=== PATIENT | female | born 1970 | race African-American/Black ===

== ENCOUNTER 2024-07-09 21:16 | Inpatient (IN) ==
--- NOTE | 2024-07-09 23:10 | DR.SOBA ---
HPI Time Seen Time Seen by Provider: 07/09/24 23:10 Primary Care Physician Primary Care Physician: Baljinder Hodge Complaints Chief Complaint:: Patient is reporting shortness of breath, fever, blood pressure high. Patient reports that she is a diabetic. Patient reports that she was seen at the [facility] earlier today around 3pm and was told that she had the flu. Patient reports that she was given generic Tamiflu, she states that she got that filled and that she laid down and when she got up, she was not feeling any better. Patient reports chills and fever. Fever as high as 103. Self Treatment fo Chief Complaint: Tamiflu, Tylenol(last dose approx 2 hours [employer]) COVID-19 Coronavirus risk:travel/contact w/high risk person: No Has patient experienced Coronavirus symptoms: Yes Coronavirus symptoms experienced: Fever, Coughing and Shortness of Breath Reviewed Nurses Notes Reviewed: Yes Source History Provided: Patient Mode of Arrival Mode of Arrival: Ambulatory Timing Onset of Chief Complaint: 07/08/24 PMH PMH Past Medical History: Yes Past Medical History: Arthritis, Diabetes and Hypertension Past Surgical History: Yes Surgical History: Hysterectomy Past Surgical History Comment: Breast Reduction, Tummy Tuck Family History History of Family Medical Conditions: No Family Medical History: Diabetes Mellitus and Heart Failure Social History Does patient currently use any type of tobacco product: Yes Have you used tobacco products in the last 12 months: Yes Type of Tobacco Use: Cigarettes Does any household member use tobacco: Yes Alcohol Use: None Do you use any recreational Drugs:: No Lives With: Spouse Lives Where: Home Travel Risk Coronavirus risk:travel/contact w/high risk person: No Has patient experienced Coronavirus symptoms: Yes Coronavirus symptoms experienced: Fever, Coughing and Shortness of Breath Infectious screening In the last 2 months have you had wt loss of >10#?: NO Have you had fever, night sweats or hemotysis?: No Have you traveled outside the country in the last 6 months?: No Isolation: Respiratory PE Vital Signs Vitals: Vital Signs Temperature 99.7 F Pulse Rate 102 Respiratory Rate 24 Respiratory Rate 24 Respiratory Rate 18 Respiratory Rate 18 Respiratory Rate 24 Blood Pressure [Right Arm] 165/97 Blood Pressure [Right Arm] 214/114 Blood Pressure 184/100 O2 Sat by Pulse Oximetry 95 O2 Sat by Pulse Oximetry 100 ROR Labs Reviewed 07/09/24 23:25 07/09/24 23:25 Laboratory: WBC 11.0 X10^3/uL (3.6-10.0) H 07/09/24 23:25 RBC 4.87 X10^6/uL (3.5-5.4) 07/09/24 23:25 Hgb 13.5 g/dL (12.0-16.0) 07/09/24 23:25 Hct 40.5 % (36.0-47.0) 07/09/24 23: MCV 83.3 fL (80.0-100.0) 07/09/24 23:25 MCH 27.7 pg (27.0-34.0) 07/09/24 23: MCHC 33.3 g/dL (33.0-35.0) 07/09/24 23: RDW 15.8 % (11.6-16.5) 07/09/24 23: Plt Count 320 X10^3/uL (150.0-450.0) 07/09/24 23:25 MPV 7.3 fL (7.4-11.0) L 07/09/24 23:25 Neut % (Auto) 88.6 % (42.0-75.0) H 07/09/24 23: Lymph % (Auto) 2.6 % (21.0-51.0) L 07/09/24 23:25 [place] % (Auto) 8.0 % (0.0-13.0) 07/09/24 23:25 Eos % (Auto) 0.4 % (0.9-2.9) L 07/09/24 23:25 Baso % (Auto) 0.4 % (0.2-1.0) 07/09/24 23:25 Neut # (Auto) 9.7 x10^3/uL (2.2-4.8) H 07/09/24 23:25 Lymph # (Auto) 0.3 X10^3/uL (1.3-2.9) L 07/09/24 23:25 [place] # (Auto) 0.9 x10^3/uL (0.3-0.8) H 07/09/24 23:25 Eos # (Auto) 0.0 x10^3/uL (0.0-0.2) 07/09/24 23:25 Baso # (Auto) 0.0 X10^3/uL (0.0-0.1) 07/09/24 23:25 Absolute Nucleated RBC 0.1 /100WBC 07/09/24 23:25 Sample Site L rad 07/09/24 23:37 ABG pH 7.470 (7.35-7.45) H 07/09/24 23:37 ABG pCO2 33.0 mmHg (35.0-45.0) L 07/09/24 23:37 ABG pO2 56.0 mmHg (80.0-100.0) L 07/09/24 23:37 ABG HCO3 24.0 mmol/L (22-26) 07/09/24 23:37 ABG O2 Saturation 91.0 % (90-100) 07/09/24 23:37 ABG Base Excess 0.8 mmol/L (-2.0-2.0) 07/09/24 23:37 Nate Test Pos 07/09/24 23:37 A-a Gradient 52.0 mmHg 07/09/24 23:37 FiO2 21.0 07/09/24 23:37 Blood Gas Comments Ramesh well. forming acid dumper 07/09/24 23:37 Sodium 139 mmol/L (136-145) 07/09/24 23:25 Corrected Sodium 140 mmol/L (136-145) 07/09/24 23:25 Potassium 3.6 mmol/L (3.5-5.1) 07/09/24 23:25 Chloride 102 mmol/L (98-107) 07/09/24 23:25 Carbon Dioxide 26.6 mmol/L (21-32) 07/09/24 23:25 BUN 10 mg/dL (7-18) 07/09/24 23:25 Creatinine 1.21 mg/dL (0.55-1.02) H 07/09/24 23:25 Est GFR (MDRD) Af Amer 59 (>60) 07/09/24 23:25 Est GFR (MDRD) Non-Af 49 (>60) L 07/09/24 23:25 Glucose 124 mg/dL (65-99) H 07/09/24 23:25 Calcium 9.5 mg/dL (8.5-10.1) 07/09/24 23:25 Corrected Calcium TNP 07/09/24 23:25 Total Bilirubin 0.30 mg/dL (0.2-1.0) 07/09/24 23:25 AST 68 Units/L (15-37) H 07/09/24 23:25 ALT 39 Units/L (12-78) 07/09/24 23:25 Alkaline Phosphatase 129 Units/L (46-116) H 07/09/24 23:25 B-Natriuretic Peptide 62.3 pg/mL (0-79) 07/09/24 23:25 Total Protein 7.7 g/dL (6.4-8.2) 07/09/24 23:25 Albumin 3.8 g/dL (3.4-5.0) 07/09/24 23:25 Globulin 3.9 g/dL (2.5-4.5) 07/09/24 23:25 Albumin/Globulin Ratio 1.0 Ratio (1.1-2.1) L 07/09/24 23:25 Opioid Opioid Risk Tool Age (Conrad box if 16-45): No History of Preadolescent Sexual Abuse: No Total: 0 Total Score Risk Category: Low Risk Copyright: Scott DE LEON predicting aberrant behaviors Discharge Plan Discharge Plan Patient Disposition: ADMITTED INPATIENT Condition: Stable Orders to Discharge Patient Discharge Orders: Transfer (Routine); Ordered 07/10/24 Ordered By: TACHO CASTELLON
[2024-07-09] MEDS: TORADOL 60 MG VIAL IM ONE (23:16)
[2024-07-09 23:40] LABS: BASOPHILS % (AUTO) 0.4 % (0.2-1.0); EOSINOPHILS % (AUTO) 0.4 % (0.9-2.9); HEMATOCRIT 40.5 % (36.0-47.0); HEMOGLOBIN 13.5 g/dL (12.0-16.0); LYMPHOCYTES # (AUTO) 0.3 X10^3/uL (1.3-2.9); LYMPHOCYTES % (AUTO) 2.6 % (21.0-51.0); MEAN CORPUSCULAR HEMOGLOBIN 27.7 pg (27.0-34.0); MEAN CORPUSCULAR HGB CONC 33.3 g/dL (33.0-35.0); MEAN CORPUSCULAR VOLUME 83.3 fL (80.0-100.0); MEAN PLATELET VOLUME 7.3 fL (7.4-11.0); MONOCYTES # (AUTO) 0.9 x10^3/uL (0.3-0.8); NEUTROPHILS # (AUTO) 9.7 x10^3/uL (2.2-4.8); NEUTROPHILS % (AUTO) 88.6 % (42.0-75.0); PLATELET COUNT 320 X10^3/uL (150.0-450.0); RED BLOOD COUNT 4.87 X10^6/uL (3.5-5.4); RED CELL DISTRIBUTION WIDTH 15.8 % (11.6-16.5)
[2024-07-09 23:41] LABS: ABG ALLEN TEST POS; ABG BASE EXCESS 0.8 mmol/L (-2.0-2.0)
[2024-07-10 00:11] LABS: ALANINE AMINOTRANSFERASE 39 Units/L (12-78); ALBUMIN 3.8 g/dL (3.4-5.0); ALKALINE PHOSPHATASE 129 Units/L (46-116); ASPARTATE AMINO TRANSFERASE 68 Units/L (15-37); BLOOD UREA NITROGEN 10 mg/dL (7-18); CALCIUM 9.5 mg/dL (8.5-10.1); CARBON DIOXIDE 26.6 mmol/L (21-32); CHLORIDE 102 mmol/L (98-107); COR NA(FOR HYPERGLY) 140 mmol/L (136-145); CREATININE 1.21 mg/dL (0.55-1.02); GLUCOSE 124 mg/dL (65-99); POTASSIUM 3.6 mmol/L (3.5-5.1); SODIUM 139 mmol/L (136-145); TOTAL PROTEIN 7.7 g/dL (6.4-8.2); eGFR NON BLACK RACES 49 (>60)
[2024-07-10] MEDS: CATAPRES TAB 0.2 MG PO ONE (00:31)
[2024-07-10] MEDS: TYLENOL 500 MG TAB EXTRA STRENGTH PO ONE ×2 (00:32→05:21)
[2024-07-10] MEDS: ZOSYN VIAL 3.375 GRAMS 3.375 G in NS 100 ML IV 100 ML IV ONE (02:26)
[2024-07-10] MEDS: SOLU-Medrol 125 MG VIAL IVP ONE (02:26)
[2024-07-10] MEDS ORDERED: NS 250 ML IV 25 ML IV PRN (03:38)
[2024-07-10] MEDS ORDERED: ZOSYN VIAL 3.375 GRAMS 3.375 G in NS 100 ML IV 100 ML IV SCH (03:38)
[2024-07-10] MEDS: NS 250 ML IV 25 ML IV PRN (03:56)
[2024-07-10] MEDS: ROBITUSSIN DM PO PRN (04:23)
[2024-07-10] MEDS ORDERED: DUONEB 0.5 MG/3 MG (3 mL) NEB ONE (04:31)
[2024-07-10] MEDS: DUONEB 0.5 MG/3 MG (3 mL) NEB SCH (04:35)
[2024-07-10] MEDS: TUSSIONEX PENNKINETIC SUSP PO PRN (04:38)
[2024-07-10] MEDS: CATAPRES TAB 0.1 MG PO ONE (04:38)
[2024-07-10 05:04] LABS: BILIRUBIN,URINE NEGATIVE (NEGATIVE); BLOOD/HEMOGLOBIN,URINE 3+ (NEGATIVE); GLUCOSE, URINE NEGATIVE (NEGATIVE); KETONES,URINE NEGATIVE (NEGATIVE); LEUKOCYTE ESTERASE ,URINE NEGATIVE (NEGATIVE); NITRITES,URINE NEGATIVE (NEGATIVE); PROTEIN,URINE 1+ (NEGATIVE); UROBILINOGEN,URINE NORMAL (NORMAL)
[2024-07-10 05:10] VITALS: BMI 40.4
[2024-07-10 05:12] LABS: APPEARANCE,URINE CLEAR (CLEAR); COLOR,URINE PALE YELLOW (YELLOW)
[2024-07-10 05:13] LABS: BACTERIA,URINE NEGATIVE /HPF (NEGATIVE); RBC,URINE 0-2 /HPF (0-3); SQUAMOUS EPITHELIAL CELL,UR RARE /HPF (NEGATIVE)
--- NOTE | 2024-07-10 05:19 | EKG ---
Test Reason : Hypertension protocol Blood Pressure : */* mmHG Vent. Rate : 102 BPM Atrial Rate : 102 BPM P-R Int : 164 ms QRS Dur : 74 ms QT Int : 352 ms P-R-T Axes : 43 -1 18 degrees QTc Int : 458 ms Sinus tachycardia Nonspecific T wave abnormality Abnormal ECG No previous ECGs available Confirmed by Larry Post MD ([id number]) on 07/10/2024 7:30:56 AM Referred By: Confirmed By: Larry Post MD
[2024-07-10] MEDS: CATAPRES TAB 0.2 MG ONE (05:21)
[2024-07-10 05:36] LABS: BASOPHILS % (AUTO) 0 % (0.2-1.0); EOSINOPHILS # (AUTO) 0.2 x10^3/uL (0.0-0.2); EOSINOPHILS % (AUTO) 1.7 % (0.9-2.9); HEMATOCRIT 39.7 % (36.0-47.0); HEMOGLOBIN 13.1 g/dL (12.0-16.0); LYMPHOCYTES # (AUTO) 0.2 X10^3/uL (1.3-2.9); LYMPHOCYTES % (AUTO) 2.5 % (21.0-51.0); MEAN CORPUSCULAR HEMOGLOBIN 27.4 pg (27.0-34.0); MEAN CORPUSCULAR HGB CONC 32.9 g/dL (33.0-35.0); MEAN CORPUSCULAR VOLUME 83.2 fL (80.0-100.0); MEAN PLATELET VOLUME 7.9 fL (7.4-11.0); MONOCYTES # (AUTO) 1.4 x10^3/uL (0.3-0.8); MONOCYTES % (AUTO) 15.5 % (0.0-13.0); NEUTROPHILS # (AUTO) 7.4 x10^3/uL (2.2-4.8); NEUTROPHILS % (AUTO) 80.3 % (42.0-75.0); PLATELET COUNT 300 X10^3/uL (150.0-450.0); RED BLOOD COUNT 4.77 X10^6/uL (3.5-5.4); RED CELL DISTRIBUTION WIDTH 15.5 % (11.6-16.5)
[2024-07-10 05:49] LABS: ALANINE AMINOTRANSFERASE 37 Units/L (12-78); ALBUMIN 3.5 g/dL (3.4-5.0); ALKALINE PHOSPHATASE 116 Units/L (46-116); ASPARTATE AMINO TRANSFERASE 95 Units/L (15-37); BLOOD UREA NITROGEN 11 mg/dL (7-18); CALCIUM 9.2 mg/dL (8.5-10.1); CARBON DIOXIDE 24.2 mmol/L (21-32); CHLORIDE 103 mmol/L (98-107); COR NA(FOR HYPERGLY) 138 mmol/L (136-145); CREATININE 1.08 mg/dL (0.55-1.02); GLUCOSE 127 mg/dL (65-99); POTASSIUM 3.8 mmol/L (3.5-5.1); SODIUM 137 mmol/L (136-145); TOTAL PROTEIN 7.2 g/dL (6.4-8.2); eGFR NON BLACK RACES 56 (>60)
[2024-07-10 05:55] LABS: WHITE BLOOD COUNT 9.8 X10^3/uL (3.6-10.0)
[2024-07-10 05:56] LABS: PLATELET MORPHOLOGY COMMENT NORMAL (NORMAL)
--- NOTE | 2024-07-10 06:58 | RAD ---
EXAM:Portable chestHISTORY:Fever, cough, shortness of breathCOMPARISON:11/03/2021FINDINGS:Hear t size is normal. Meera are normal. Lung greer are clear. No pleural effusions are identified. Bony thorax is unremarkableIMPRESSION:No significant abnormality identifiedTHIS IS AN ELECTRONICALLY VERIFIED FINAL [id number]/10/2024 6:54 AM - Electronically signed by Emmanuel Keane MD
[2024-07-10] MEDS ORDERED: CONSULT PHARMACY - POTASSIUM & MAGNESIUM XX SCH (07:00)
[2024-07-10] MEDS ORDERED: PULMICORT NEB TX 0.5 MG NEB ONE (07:23)
[2024-07-10] MEDS: ZOSYN VIAL 3.375 GRAMS 3.375 G in NS 100 ML IV 100 ML IV SCH (08:13)
[2024-07-10] MEDS: TAMIFLU PO SCH (08:14)
[2024-07-10] MEDS: K-DUR TAB 20 MEQ PO SCH (08:14)
[2024-07-10] MEDS: PULMICORT NEB TX 0.5 MG NEB SCH (08:35)
[2024-07-10] MEDS: APRESOLINE INJ 20 MG VIAL IVP ONE (08:42)
[2024-07-10] MEDS: NEURONTIN CAP 400 MG PO SCH (09:20)
[2024-07-10] MEDS: PriLOSEC PO SCH (09:20)
[2024-07-10] MEDS: TORADOL 30 MG VIAL IVP PRN (09:33)
--- NOTE | 2024-07-10 09:44 | DR.H&P ---
H&P History & Physical for Day of: H&P Date: 07/10/24 Chief Complaint Chief Complaint: sob, weakness History of Present Illness History of Present Illness: Ms Lepe is a 54y/o female with a PMH of HTN, DM, GERD and anxiety presented with dyspnea, weakness, fever and chills. She has had worsening symptoms for the past 2-3 days. She was seen in [facility] and tested positive for Flu. She was discharged on Tamiflu but continued to feel worse so came here. ER work up here showed ABG concerning for hypoxia. UA, COVID/RSV/Flu and CXR were all negative. She was started on Tamiflu and Zosyn. She is admitted for further management. She is currently on 2L NC. She reports generalized weakness and pain. Her BP is elevated this morning, 171/111. She was given IV hydralazine. She takes norvasc and lisinopril at home. Labs/imaging reviewed: -WBC 9.8 Hgb 13.1 BUN/Cr 11/.08 -ABG 7.47// -CXR: no acute process Plan: admit with isolation precautions. Wean O2 as tolerated. Will add toradol for pain control. Hydralazine prn. Resume home medications, confirm with pharmacy. Continue duonebs and pulmicort prn. Replace electrolytes prn. Tylenol prn. Add SSI. Monitor BP. Monitor AM labs/imaging. Past Medical History Past Medical History: Arthritis, Diabetes and Hypertension Past Surgical History Surgical History: Hysterectomy Family History Family Medical History: Diabetes Mellitus, Coronary Artery Disease and Hypertension Social History Does patient currently use any type of tobacco product: No Have you used tobacco products in the last 12 months: Yes Type of Tobacco Use: Cigarettes How many years tobacco product used: 3 Does any household member use tobacco: No Alcohol Use: None Drug Use: None Medications Home Medications: Home Medications Medication Instructions Recorded Confirmed Type amlodipine 10 mg tablet 10 mg PO QHS 11/03/21 07/09/24 History fluticasone propionate 50 1 spray intranasal DAILY 11/03/21 07/09/24 History mcg/actuation nasal spray,suspension loratadine 10 mg tablet 10 mg PO DAILY 11/03/21 07/09/24 History metformin 500 mg tablet,extended 1,000 mg PO QHS 11/03/21 07/09/24 History release 24 hr buspirone 10 mg tablet 10 mg PO BID PRN 07/09/24 07/09/24 History gabapentin 800 mg tablet 800 mg PO BID 07/09/24 07/09/24 History omeprazole 40 mg capsule,delayed 40 mg PO QAM 07/09/24 07/09/24 History release pantoprazole 40 mg tablet,delayed 40 mg PO QDAY 07/09/24 07/09/24 History release Allergies Allergies Allergy/AdvReac Type Severity Reaction Status Date / Time No Known Drug Allergies Allergy Verified 03/13/19 10:06 Labs 07/10/24 04:08 07/10/24 04:08 Labs: Laboratory WBC 9.8 X10^3/uL (3.6-10.0) 07/10/24 04:08 RBC 4.77 X10^6/uL (3.5-5.4) 07/10/24 04:08 Hgb 13.1 g/dL (12.0-16.0) 07/10/24 04:08 Hct 39.7 % (36.0-47.0) 07/10/24 04:08 MCV 83.2 fL (80.0-100.0) 07/10/24 04:08 MCH 27.4 pg (27.0-34.0) 07/10/24 04:08 MCHC 32.9 g/dL (33.0-35.0) L 07/10/24 04:08 RDW 15.5 % (11.6-16.5) 07/10/24 04:08 Plt Count 300 X10^3/uL (150.0-450.0) 07/10/24 04:08 Plt Count Comment Adequate (ADEQUATE) 07/10/24 04:08 MPV 7.9 fL (7.4-11.0) 07/10/24 04:08 Neut % (Auto) 80.3 % (42.0-75.0) H 07/10/24 04:08 Lymph % (Auto) 2.5 % (21.0-51.0) L 07/10/24 04:08 [place] % (Auto) 15.5 % (0.0-13.0) H 07/10/24 04:08 Eos % (Auto) 1.7 % (0.9-2.9) 07/10/24 04:08 Baso % (Auto) 0 % (0.2-1.0) L 07/10/24 04:08 Neut # (Auto) 7.4 x10^3/uL (2.2-4.8) H 07/10/24 04:08 Lymph # (Auto) 0.2 X10^3/uL (1.3-2.9) L 07/10/24 04:08 [place] # (Auto) 1.4 x10^3/uL (0.3-0.8) H 07/10/24 04:08 Eos # (Auto) 0.2 x10^3/uL (0.0-0.2) 07/10/24 04:08 Baso # (Auto) 0.0 X10^3/uL (0.0-0.1) 07/10/24 04:08 Absolute Nucleated RBC 0.0 /100WBC 07/10/24 04:08 Plt Morphology Comment Normal (NORMAL) 07/10/24 04:08 RBC Morphology Normal (NORMAL) 07/10/24 04:08 Sample Site L rad 07/09/24 23:37 ABG pH 7.470 (7.35-7.45) H 07/09/24 23:37 ABG pCO2 33.0 mmHg (35.0-45.0) L 07/09/24 23:37 ABG pO2 56.0 mmHg (80.0-100.0) L 07/09/24 23:37 ABG HCO3 24.0 mmol/L (22-26) 07/09/24 23:37 ABG O2 Saturation 91.0 % (90-100) 07/09/24 23:37 ABG Base Excess 0.8 mmol/L (-2.0-2.0) 07/09/24 23:37 Nate Test Pos 07/09/24 23:37 A-a Gradient 52.0 mmHg 07/09/24 23:37 FiO2 21.0 07/09/24 23:37 Blood Gas Comments Ramesh well. operation specialist 07/09/24 23:37 Sodium 137 mmol/L (136-145) 07/10/24 04:08 Corrected Sodium 138 mmol/L (136-145) 07/10/24 04:08 Potassium 3.8 mmol/L (3.5-5.1) 07/10/24 04:08 Chloride 103 mmol/L (98-107) 07/10/24 04:08 Carbon Dioxide 24.2 mmol/L (21-32) 07/10/24 04:08 BUN 11 mg/dL (7-18) 07/10/24 04:08 Creatinine 1.08 mg/dL (0.55-1.02) H 07/10/24 04:08 Est GFR (MDRD) Af Amer > 60 (>60) 07/10/24 04:08 Est GFR (MDRD) Non-Af 56 (>60) L 07/10/24 04:08 Glucose 127 mg/dL (65-99) H 07/10/24 04:08 POC Glucose (mg/dL) 169 mg/dL (65-99) H 07/10/24 05:15 Calcium 9.2 mg/dL (8.5-10.1) 07/10/24 04:08 Corrected Calcium TNP 07/10/24 04:08 Magnesium 2.0 mg/dL (2.0-2.9) 07/10/24 04:08 Total Bilirubin 0.30 mg/dL (0.2-1.0) 07/10/24 04:08 AST 95 Units/L (15-37) H 07/10/24 04:08 ALT 37 Units/L (12-78) 07/10/24 04:08 Alkaline Phosphatase 116 Units/L (46-116) 07/10/24 04:08 B-Natriuretic Peptide 62.3 pg/mL (0-79) 07/09/24 23:25 Total Protein 7.2 g/dL (6.4-8.2) 07/10/24 04:08 Albumin 3.5 g/dL (3.4-5.0) 07/10/24 04:08 Globulin 3.7 g/dL (2.5-4.5) 07/10/24 04:08 Albumin/Globulin Ratio 0.9 Ratio (1.1-2.1) L 07/10/24 04:08 Specimen Type Clean catch urine 07/10/24 04:45 Urine Color Pale yellow (YELLOW) 07/10/24 04:45 Urine Appearance Clear (CLEAR) 07/10/24 04:45 Urine pH 5.0 (5.0 - 8.0) 07/10/24 04:45 Ur Specific [place] 1.015 (1.000-1.030) 07/10/24 04:45 Urine Protein 1+ (NEGATIVE) 07/10/24 04:45 Urine Glucose (UA) Negative (NEGATIVE) 07/10/24 04:45 Urine Ketones Negative (NEGATIVE) 07/10/24 04:45 Urine Blood 3+ (NEGATIVE) 07/10/24 04:45 Urine Nitrite Negative (NEGATIVE) 07/10/24 04:45 Urine Bilirubin Negative (NEGATIVE) 07/10/24 04:45 Urine Urobilinogen Normal (NORMAL) 07/10/24 04:45 Ur Leukocyte Esterase Negative (NEGATIVE) 07/10/24 04:45 Urine RBC 0-2 /HPF (0-3) 07/10/24 04:45 Urine WBC None seen /HPF (0-5) 07/10/24 04:45 Ur Squamous Epith Cells Rare /HPF (NEGATIVE) 07/10/24 04:45 Urine Bacteria Negative /HPF (NEGATIVE) 07/10/24 04:45 Ur Culture Indicated? No/not indicated 07/10/24 04:45 Review of Systems Constitutional: Fever, Chills, Weakness and Malaise Eyes: No Symptoms Reported ENT: No Symptoms Reported Respiratory: Cough, Shortness of Breath and SOB with Excertion Cardiovascular: No Symptoms Reported Gastrointestinal: No Symptoms Reported Genitourinary: No Symptoms Reported Musculoskeletal: Other (generalized pain ) Skin: No Symptoms Reported Neurological: No Symptoms Reported Physical Exam Vital Signs: Vital Signs Temperature 100.5 F Temperature 99.0 F Temperature 99.0 F Pulse Rate [Left] 91 Pulse Rate 94 Pulse Rate 95 Pulse Rate 86 Pulse Rate 89 Pulse Rate 96 Pulse Rate 96 Pulse Rate 96 Pulse Rate 93 Pulse Rate 92 Pulse Rate 90 Pulse Rate 87 Pulse Rate 88 Pulse Rate 86 Pulse Rate 85 Pulse Rate 85 Pulse Rate 80 Pulse Rate 87 Pulse Rate 86 Pulse Rate 87 Pulse Rate 88 Pulse Rate 86 Pulse Rate 97 Pulse Rate 99 Pulse Rate 90 Pulse Rate 91 Pulse Rate 85 Pulse Rate 83 Pulse Rate 84 Pulse Rate 83 Pulse Rate 83 Pulse Rate 89 Pulse Rate 86 Pulse Rate 88 Pulse Rate 88 Pulse Rate 91 Pulse Rate 96 Pulse Rate 96 Pulse Rate 99 Pulse Rate 99 Pulse Rate 95 Pulse Rate 95 Pulse Rate 92 Pulse Rate 88 Pulse Rate 91 Pulse Rate 91 Pulse Rate 87 Pulse Rate 91 Respiratory Rate 30 Respiratory Rate 36 Respiratory Rate 55 Respiratory Rate 43 Respiratory Rate 30 Respiratory Rate 34 Respiratory Rate 32 Respiratory Rate 33 Respiratory Rate 30 Respiratory Rate 26 Respiratory Rate 24 Respiratory Rate 26 Respiratory Rate 25 Respiratory Rate 31 Respiratory Rate 32 Respiratory Rate 34 Respiratory Rate 31 Respiratory Rate 31 Respiratory Rate 33 Respiratory Rate 26 Respiratory Rate 28 Respiratory Rate 30 Respiratory Rate 53 Respiratory Rate 28 Respiratory Rate 8 Respiratory Rate 29 Respiratory Rate 30 Respiratory Rate 26 Respiratory Rate 27 Respiratory Rate 30 Respiratory Rate 23 Respiratory Rate 28 Respiratory Rate 32 Respiratory Rate 31 Respiratory Rate 34 Respiratory Rate 28 Respiratory Rate 30 Respiratory Rate 37 Respiratory Rate 30 Respiratory Rate 27 Respiratory Rate 24 Respiratory Rate 26 Respiratory Rate 28 Respiratory Rate 30 Respiratory Rate 28 Respiratory Rate 32 Respiratory Rate 26 Blood Pressure [Left Arm] 181/114 Blood Pressure 179/103 Blood Pressure 173/114 Blood Pressure 171/96 Blood Pressure 166/114 Blood Pressure 172/115 Blood Pressure 183/113 Blood Pressure 181/111 Blood Pressure 182/112 Blood Pressure 181/107 Blood Pressure 171/111 Blood Pressure 172/108 Blood Pressure 166/93 Blood Pressure 164/89 Blood Pressure 183/102 Blood Pressure 182/105 Blood Pressure 158/91 Blood Pressure 158/91 Blood Pressure 151/90 Blood Pressure 151/90 Blood Pressure 156/94 Blood Pressure 153/96 Blood Pressure 143/91 Blood Pressure 165/92 Blood Pressure 165/92 Blood Pressure 153/101 Blood Pressure 153/101 Blood Pressure 161/106 Blood Pressure 161/106 Blood Pressure 171/126 Blood Pressure 171/116 Blood Pressure 181/114 Blood Pressure 181/114 Blood Pressure 169/115 Blood Pressure 180/107 O2 Sat by Pulse Oximetry 94 O2 Sat by Pulse Oximetry 97 O2 Sat by Pulse Oximetry 97 O2 Sat by Pulse Oximetry 96 O2 Sat by Pulse Oximetry 96 O2 Sat by Pulse Oximetry 100 O2 Sat by Pulse Oximetry 100 O2 Sat by Pulse Oximetry 99 O2 Sat by Pulse Oximetry 99 O2 Sat by Pulse Oximetry 100 O2 Sat by Pulse Oximetry 98 O2 Sat by Pulse Oximetry 95 O2 Sat by Pulse Oximetry 93 O2 Sat by Pulse Oximetry 95 O2 Sat by Pulse Oximetry 94 O2 Sat by Pulse Oximetry 96 O2 Sat by Pulse Oximetry 96 O2 Sat by Pulse Oximetry 96 O2 Sat by Pulse Oximetry 94 O2 Sat by Pulse Oximetry 93 O2 Sat by Pulse Oximetry 89 O2 Sat by Pulse Oximetry 91 O2 Sat by Pulse Oximetry 94 O2 Sat by Pulse Oximetry 92 O2 Sat by Pulse Oximetry 93 O2 Sat by Pulse Oximetry 93 O2 Sat by Pulse Oximetry 92 O2 Sat by Pulse Oximetry 92 O2 Sat by Pulse Oximetry 92 O2 Sat by Pulse Oximetry 92 O2 Sat by Pulse Oximetry 94 O2 Sat by Pulse Oximetry 85 O2 Sat by Pulse Oximetry 85 O2 Sat by Pulse Oximetry 92 O2 Sat by Pulse Oximetry 87 O2 Sat by Pulse Oximetry 95 O2 Sat by Pulse Oximetry 90 O2 Sat by Pulse Oximetry 93 O2 Sat by Pulse Oximetry 93 O2 Sat by Pulse Oximetry 100 O2 Sat by Pulse Oximetry 96 O2 Sat by Pulse Oximetry 100 O2 Sat by Pulse Oximetry 95 O2 Sat by Pulse Oximetry 92 O2 Sat by Pulse Oximetry 95 O2 Sat by Pulse Oximetry 95 O2 Sat by Pulse Oximetry 90 O2 Sat by Pulse Oximetry 94 Oriented: Normal Eyes: Normal Ear: Normal Nose: Normal Throat: Normal Respiratory: Clear Throughout Cardiovascular: Normal Auscultation: Bowel Sounds: Normal Palpation: Normal Tenderness: Normal Skin: Normal Musculoskeletal: Normal Psychiatric: Normal Affect: Normal Speech Pattern: Clear and Appropriate Assessment/Plan (1) Influenza: Status: Acute (2) Acute respiratory failure: Qualifiers: Respiratory failure complication: hypoxia Qualified Code(s): J96.01 - Acute respiratory failure with hypoxia Status: Acute (3) Generalized weakness: Status: Acute (4) HTN (hypertension): Qualifiers: Hypertension type: primary hypertension Qualified Code(s): I10 - Essential (primary) hypertension Status: Chronic Review H&P Reviewed: Yes Patient was examined?: Yes
[2024-07-10] MEDS: BUSPAR PO PRN (10:46)
[2024-07-10] MEDS: ZESTORETIC 20/25 MG PO SCH (10:55)
[2024-07-10] MEDS: NovoLIN R (or HumuLIN R) SUBCUT PRN (11:10)
[2024-07-10] MEDS: NORCO 10/325 TAB PO PRN (12:26)
[2024-07-10] MEDS ORDERED: MILK OF MAGNESIA PO PRN (17:47)
[2024-07-10] MEDS: SNACK - Diabetic Appropriate PO SCH (20:39)
[2024-07-10] MEDS: NORVASC TAB 10 MG PO SCH (20:40)
[2024-07-10] MEDS: COLACE CAP 100 MG PO PRN (20:40)
[2024-07-10] MEDS: GLUCOPHAGE XR 24-HR PO SCH (20:42)
[2024-07-10] MEDS: TYLENOL 325 MG TAB PO PRN (22:29)
[2024-07-11 05:52] LABS: BASOPHILS % (AUTO) 0.1 % (0.2-1.0); HEMATOCRIT 41.6 % (36.0-47.0); HEMOGLOBIN 13.4 g/dL (12.0-16.0); LYMPHOCYTES # (AUTO) 0.7 X10^3/uL (1.3-2.9); LYMPHOCYTES % (AUTO) 5.7 % (21.0-51.0); MEAN CORPUSCULAR HEMOGLOBIN 27.5 pg (27.0-34.0); MEAN CORPUSCULAR HGB CONC 32.3 g/dL (33.0-35.0); MEAN CORPUSCULAR VOLUME 85.2 fL (80.0-100.0); MEAN PLATELET VOLUME 8.2 fL (7.4-11.0); MONOCYTES # (AUTO) 0.6 x10^3/uL (0.3-0.8); MONOCYTES % (AUTO) 4.6 % (0.0-13.0); NEUTROPHILS # (AUTO) 11.1 x10^3/uL (2.2-4.8); NEUTROPHILS % (AUTO) 89.6 % (42.0-75.0); PLATELET COUNT 224 X10^3/uL (150.0-450.0); RED BLOOD COUNT 4.88 X10^6/uL (3.5-5.4); RED CELL DISTRIBUTION WIDTH 16.4 % (11.6-16.5); WHITE BLOOD COUNT 12.3 X10^3/uL (3.6-10.0)
[2024-07-11 06:02] LABS: ALBUMIN 3.3 g/dL (3.4-5.0); CALCIUM 8.9 mg/dL (8.5-10.1); CARBON DIOXIDE 26.3 mmol/L (21-32); COR CA(FOR HYPOALB) 9.5 mg/dL (8.5-10.1); CREATININE 2.45 mg/dL (0.55-1.02); MAGNESIUM 2.3 mg/dL (2.0-2.9); POTASSIUM 4.6 mmol/L (3.5-5.1); TOTAL PROTEIN 7.1 g/dL (6.4-8.2)
[2024-07-11] MEDS: NS 1,000 ML IV 1,000 ML IV ONE (09:50)
[2024-07-11] MEDS: NS 1,000 ML IV 1,000 ML IV SCH (10:26)
[2024-07-11] MEDS: ZESTRIL TAB 40 MG PO SCH (12:37)
[2024-07-12 05:13] LABS: BASOPHILS % (AUTO) 0.3 % (0.2-1.0); HEMATOCRIT 41.2 % (36.0-47.0); HEMOGLOBIN 13.5 g/dL (12.0-16.0); LYMPHOCYTES % (AUTO) 15.5 % (21.0-51.0); MEAN CORPUSCULAR HEMOGLOBIN 27.3 pg (27.0-34.0); MEAN CORPUSCULAR HGB CONC 32.7 g/dL (33.0-35.0); MEAN CORPUSCULAR VOLUME 83.6 fL (80.0-100.0); MEAN PLATELET VOLUME 8.3 fL (7.4-11.0); MONOCYTES # (AUTO) 0.7 x10^3/uL (0.3-0.8); MONOCYTES % (AUTO) 10.5 % (0.0-13.0); NEUTROPHILS # (AUTO) 4.9 x10^3/uL (2.2-4.8); NEUTROPHILS % (AUTO) 73.7 % (42.0-75.0); PLATELET COUNT 196 X10^3/uL (150.0-450.0); RED BLOOD COUNT 4.93 X10^6/uL (3.5-5.4); RED CELL DISTRIBUTION WIDTH 15.8 % (11.6-16.5); WHITE BLOOD COUNT 6.6 X10^3/uL (3.6-10.0)
[2024-07-12 05:23] LABS: ALBUMIN 2.7 g/dL (3.4-5.0); CALCIUM 8.8 mg/dL (8.5-10.1); CARBON DIOXIDE 24.1 mmol/L (21-32); COR CA(FOR HYPOALB) 9.8 mg/dL (8.5-10.1); CREATININE 1.39 mg/dL (0.55-1.02); POTASSIUM 4.3 mmol/L (3.5-5.1); TOTAL PROTEIN 6.4 g/dL (6.4-8.2)
[2024-07-12] MEDS: TESSALON PERLES PO PRN (08:30)
[2024-07-12] MEDS: TORADOL 60 MG VIAL IM ONE (10:09)
[2024-07-12] MEDS: RHINOCORT ALLERGY NASAL SPRAY ENOSTRIL SCH (10:10)
[2024-07-13] MEDS: ZOFRAN INJ 4 MG VIAL IVP PRN (04:56)
[2024-07-13 05:39] LABS: BASOPHILS % (AUTO) 0.4 % (0.2-1.0); HEMATOCRIT 38.8 % (36.0-47.0); HEMOGLOBIN 12.7 g/dL (12.0-16.0); LYMPHOCYTES % (AUTO) 12.2 % (21.0-51.0); MEAN CORPUSCULAR HEMOGLOBIN 27.4 pg (27.0-34.0); MEAN CORPUSCULAR HGB CONC 32.8 g/dL (33.0-35.0); MEAN CORPUSCULAR VOLUME 83.5 fL (80.0-100.0); MEAN PLATELET VOLUME 8.3 fL (7.4-11.0); MONOCYTES # (AUTO) 1.1 x10^3/uL (0.3-0.8); MONOCYTES % (AUTO) 12.7 % (0.0-13.0); NEUTROPHILS # (AUTO) 6.2 x10^3/uL (2.2-4.8); NEUTROPHILS % (AUTO) 74.7 % (42.0-75.0); PLATELET COUNT 169 X10^3/uL (150.0-450.0); RED BLOOD COUNT 4.65 X10^6/uL (3.5-5.4); RED CELL DISTRIBUTION WIDTH 15.9 % (11.6-16.5); WHITE BLOOD COUNT 8.3 X10^3/uL (3.6-10.0)
[2024-07-13 05:51] LABS: ALANINE AMINOTRANSFERASE 62 Units/L (12-78); ALBUMIN 2.5 g/dL (3.4-5.0); ALKALINE PHOSPHATASE 78 Units/L (46-116); ASPARTATE AMINO TRANSFERASE 189 Units/L (15-37); BLOOD UREA NITROGEN 11 mg/dL (7-18); CALCIUM 8.9 mg/dL (8.5-10.1); CARBON DIOXIDE 26.5 mmol/L (21-32); CHLORIDE 104 mmol/L (98-107); COR CA(FOR HYPOALB) 10.1 mg/dL (8.5-10.1); CREATININE 1.17 mg/dL (0.55-1.02); GLUCOSE 107 mg/dL (65-99); POTASSIUM 4.5 mmol/L (3.5-5.1); SODIUM 137 mmol/L (136-145); TOTAL PROTEIN 6.1 g/dL (6.4-8.2); eGFR NON BLACK RACES 51 (>60)
[2024-07-13] MEDS: TYGACIL 50 MG VIAL 100 MG in NS 100 ML IV 100 ML IV ONE (10:07)
[2024-07-13] MEDS: OMNIPAQUE 350 mg/mL 100 mL BTL 100 ML ONE (11:58)
--- NOTE | 2024-07-13 13:05 | CT ---
EXAMINATION: CTA, CHEST HISTORY: HYPOXIA; COMPARISON: None. TECHNIQUE: Contiguous axial CT images of the thorax following intravenous contrast. Images are reviewed in the axial imaging plane with post processing thick slab MIP/3D volume images at a workstation.The above C T scan was done with automated exposure control and the mA and kV was adjusted to obtain quality imag es according to patient size. FINDINGS: The lungs are banded. Extensive alveolar infiltrates scattered throughout both lungs. No pleural fl uid collections. The central airways are patent. Enlargement of the main pulmonary outflow trunk measuring 3.7 cm diameter suspicious for pulmonary ar terial hypertension. Heterogeneous enhancement of secondary and tertiary branch vessels of the pulmo nary arteries to both lungs suspicious for acute pulmonary emboli. Details are limited by patient mo tion imaging artifacts. [id number] multichamber cardiac enlargement. Coronary artery calcifications. No evidence of t horacic aortic aneurysm or dissection. No pericardial effusion. Mediastinal lymph nodes as follows: 1.2 x 1.2 cm right precarinal space; 1. 9 by 1 cm subcarinal space; 1.6 cm right pulmonary hilum. Small hiatal hernia. Mild thoracic spondylosis. IMPRESSION: Extensive alveolar infiltrates scattered throughout both lungs. Enlarged main pulmonary outflow trunk suspicious for pulmonary arterial hypertension. Subtle heterog eneous enhancement of secondary and tertiary branch vessels of the pulmonary arteries to both lungs s uspicious for acute pulmonary emboli. Details are limited by patient motion imaging artifacts. Cardiomegaly, coronary artery calcifications. THIS IS AN ELECTRONICALLY VERIFIED FINAL REPORT 07/13/2024 1:02 PM - Electronically signed by Iman Goodwin MD
[2024-07-13] MEDS: ELIQUIS PO SCH (13:47)
[2024-07-13] MEDS: TYGACIL 50 MG VIAL 50 MG in NS 100 ML IV 100 ML IV SCH (19:33)
[2024-07-14 05:13] LABS: BASOPHILS % (AUTO) 0.4 % (0.2-1.0); HEMATOCRIT 40.8 % (36.0-47.0); HEMOGLOBIN 13.7 g/dL (12.0-16.0); LYMPHOCYTES # (AUTO) 1.5 X10^3/uL (1.3-2.9); LYMPHOCYTES % (AUTO) 15.9 % (21.0-51.0); MEAN CORPUSCULAR HEMOGLOBIN 27.9 pg (27.0-34.0); MEAN CORPUSCULAR HGB CONC 33.5 g/dL (33.0-35.0); MEAN CORPUSCULAR VOLUME 83.3 fL (80.0-100.0); MEAN PLATELET VOLUME 8.2 fL (7.4-11.0); MONOCYTES # (AUTO) 1.5 x10^3/uL (0.3-0.8); MONOCYTES % (AUTO) 15.9 % (0.0-13.0); NEUTROPHILS # (AUTO) 6.2 x10^3/uL (2.2-4.8); NEUTROPHILS % (AUTO) 67.8 % (42.0-75.0); PLATELET COUNT 168 X10^3/uL (150.0-450.0); RED CELL DISTRIBUTION WIDTH 15.9 % (11.6-16.5); WHITE BLOOD COUNT 9.1 X10^3/uL (3.6-10.0)
[2024-07-14 05:56] LABS: ALANINE AMINOTRANSFERASE 60 Units/L (12-78); ALBUMIN 2.5 g/dL (3.4-5.0); ALKALINE PHOSPHATASE 82 Units/L (46-116); ASPARTATE AMINO TRANSFERASE 171 Units/L (15-37); BLOOD UREA NITROGEN 11 mg/dL (7-18); CALCIUM 9.2 mg/dL (8.5-10.1); CARBON DIOXIDE 25.6 mmol/L (21-32); CHLORIDE 104 mmol/L (98-107); COR CA(FOR HYPOALB) 10.4 mg/dL (8.5-10.1); COR NA(FOR HYPERGLY) 138 mmol/L (136-145); CREATININE 1.04 mg/dL (0.55-1.02); GLUCOSE 115 mg/dL (65-99); POTASSIUM 4.6 mmol/L (3.5-5.1); SODIUM 138 mmol/L (136-145); TOTAL PROTEIN 6.6 g/dL (6.4-8.2); eGFR NON BLACK RACES 58 (>60)
--- NOTE | 2024-07-14 07:07 | RAD ---
EXAM:CHEST, 1 VIEWHISTORY:FEVER, HYPOXIA;COMPARISON:07/09/2024FINDINGS:Th e trachea is midline. The cardiac silhouette is unremarkable. Multifocal airspace disease scattered throughout the right hemithorax and within the left mid lung zone is observed consistent with developing multifocal bronchopneumonia.. The bony thorax is unremarkable.IMPRESSION:Multifocal airspace opacities for which underlying multifocal bronchopneumonia would be suspected. Continued follow up will be needed in this regard.THIS IS AN ELECTRONICALLY VERIFIED FINAL [id number]/2024 7:03 AM - Electronically signed by Donaldo Ray MD
[2024-07-15 06:49] LABS: BASOPHILS % (AUTO) 0.4 % (0.2-1.0); EOSINOPHILS % (AUTO) 0.2 % (0.9-2.9); HEMATOCRIT 41.9 % (36.0-47.0); HEMOGLOBIN 13.8 g/dL (12.0-16.0); LYMPHOCYTES # (AUTO) 2.1 X10^3/uL (1.3-2.9); LYMPHOCYTES % (AUTO) 21.4 % (21.0-51.0); MEAN CORPUSCULAR HEMOGLOBIN 27.5 pg (27.0-34.0); MEAN CORPUSCULAR VOLUME 83.3 fL (80.0-100.0); MEAN PLATELET VOLUME 8.2 fL (7.4-11.0); MONOCYTES # (AUTO) 1.7 x10^3/uL (0.3-0.8); MONOCYTES % (AUTO) 18.3 % (0.0-13.0); NEUTROPHILS # (AUTO) 5.7 x10^3/uL (2.2-4.8); NEUTROPHILS % (AUTO) 59.7 % (42.0-75.0); PLATELET COUNT 157 X10^3/uL (150.0-450.0); RED BLOOD COUNT 5.02 X10^6/uL (3.5-5.4); RED CELL DISTRIBUTION WIDTH 15.7 % (11.6-16.5); WHITE BLOOD COUNT 9.6 X10^3/uL (3.6-10.0)
[2024-07-15 07:03] LABS: ALANINE AMINOTRANSFERASE 56 Units/L (12-78); ALBUMIN 2.4 g/dL (3.4-5.0); ALKALINE PHOSPHATASE 87 Units/L (46-116); ASPARTATE AMINO TRANSFERASE 122 Units/L (15-37); BLOOD UREA NITROGEN 10 mg/dL (7-18); CALCIUM 9.1 mg/dL (8.5-10.1); CARBON DIOXIDE 26.7 mmol/L (21-32); CHLORIDE 102 mmol/L (98-107); COR CA(FOR HYPOALB) 10.4 mg/dL (8.5-10.1); CREATININE 0.93 mg/dL (0.55-1.02); GLUCOSE 104 mg/dL (65-99); POTASSIUM 4.6 mmol/L (3.5-5.1); SODIUM 137 mmol/L (136-145); TOTAL PROTEIN 6.5 g/dL (6.4-8.2); eGFR NON BLACK RACES > 60 (>60)
[2024-07-15] MEDS: APRESOLINE TAB 25 MG PO SCH (18:15)
[2024-07-16 05:52] LABS: BASOPHILS % (AUTO) 0.1 % (0.2-1.0); LYMPHOCYTES # (AUTO) 2.7 X10^3/uL (1.3-2.9); MEAN CORPUSCULAR HGB CONC 33.3 g/dL (33.0-35.0); MONOCYTES # (AUTO) 2.3 x10^3/uL (0.3-0.8); NEUTROPHILS # (AUTO) 5.7 x10^3/uL (2.2-4.8)
[2024-07-16 06:00] LABS: EOSINOPHILS # (AUTO) 0.1 x10^3/uL (0.0-0.2); EOSINOPHILS % (AUTO) 0.5 % (0.9-2.9); HEMATOCRIT 42.1 % (36.0-47.0); LYMPHOCYTES % (AUTO) 25.3 % (21.0-51.0); MEAN CORPUSCULAR HEMOGLOBIN 27.4 pg (27.0-34.0); MEAN CORPUSCULAR VOLUME 82.4 fL (80.0-100.0); MEAN PLATELET VOLUME 8.4 fL (7.4-11.0); MONOCYTES % (AUTO) 21.3 % (0.0-13.0); NEUTROPHILS % (AUTO) 52.8 % (42.0-75.0); PLATELET COUNT 221 X10^3/uL (150.0-450.0); RED BLOOD COUNT 5.11 X10^6/uL (3.5-5.4); RED CELL DISTRIBUTION WIDTH 15.9 % (11.6-16.5); WHITE BLOOD COUNT 10.9 X10^3/uL (3.6-10.0)
[2024-07-16 06:13] LABS: ALANINE AMINOTRANSFERASE 46 Units/L (12-78); ALBUMIN 2.4 g/dL (3.4-5.0); ALKALINE PHOSPHATASE 88 Units/L (46-116); ASPARTATE AMINO TRANSFERASE 81 Units/L (15-37); BLOOD UREA NITROGEN 15 mg/dL (7-18); CALCIUM 8.9 mg/dL (8.5-10.1); CARBON DIOXIDE 25.5 mmol/L (21-32); CHLORIDE 102 mmol/L (98-107); COR CA(FOR HYPOALB) 10.2 mg/dL (8.5-10.1); GLUCOSE 96 mg/dL (65-99); POTASSIUM 4.2 mmol/L (3.5-5.1); SODIUM 136 mmol/L (136-145); TOTAL PROTEIN 6.5 g/dL (6.4-8.2); eGFR NON BLACK RACES > 60 (>60)
[2024-07-16 06:37] LABS: BAND NEUTROPHILS % 2 % (0-10); PLATELET MORPHOLOGY COMMENT NORMAL (NORMAL)
[2024-07-16 09:09] VITALS: RESP 24
[2024-07-16] MEDS ORDERED: MOBIC TAB 15 MG PO SCH (10:00)
[2024-07-16 12:28] VITALS: BP 158/90; PULSE 98; TEMP 98.4; O2SAT 97
== END 2024-07-16 11:00 | disposition home or self-care (01) | DRG 152 ==
LOC: ER 21:16 → ICU 21:16 → OBSVTOIN 07-10 03:08 → ICU 07-10 03:36
PROVIDERS: ADMIT Internal Medicine; ATTEND Internal Medicine